=== PATIENT | female | born 1975 | race Two or more races ===

== ENCOUNTER 2024-12-17 15:42 | Emergency (ER) | payer MEDICAID, OTHER ==
[~2024-12-17] VITALS: Ht 165.1 cm; Wt 77.7 kg
[2024-12-17 15:43] VITALS: BP 180/129; PULSE 85; RESP 17; TEMP 97.9; O2SAT 100
== END 2024-12-17 18:20 | disposition left against medical advice (07) ==
LOC: ER 15:42
DX: K08.89 Other specified disorders of teeth and supporting structures (principal); Z79.899 Other long term (current) drug therapy